=== PATIENT | female | born 1970 | race Caucasian/White ===

== ENCOUNTER 2017-05-26 11:35 | Emergency (ER) | payer MEDICAID ==
[~2017-05-26] VITALS: Ht 175.3 cm; Wt 70.0 kg
[~2017-05-26 11:35] MED LIST: ASPI81 PO; BUPR150T3 PO; DEPA250T2 PO; ENAL10TA7 PO; HYDRO25 PO; MACR100C PO; PAXI30TA7 PO; PLAV75TA PO; VIST25CA PO
[2017-05-26 11:47] VITALS: BP 117/58; PULSE 104; RESP 18; TEMP 98.1; O2SAT 96
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
[2017-05-26] MEDS ORDERED: PAXI30TA7 PO (11:59)
[2017-05-26] MEDS ORDERED: PLAV75TA29 PO (11:59)
[2017-05-26] MEDS ORDERED: VIST50CA PO (11:59)
[2017-05-26] MEDS ORDERED: DEPA250T2 PO (11:59)
[2017-05-26] MEDS ORDERED: ENAL20TA PO (11:59)
[2017-05-26] MEDS ORDERED: SODIUM CHLORIDE 0.9% FLUSH 10 ML FLUSH IVF PRN (12:00)
[2017-05-26 12:27] LABS: AUTOMATED NEUTROPHIL # 3.8 TH/MM3 (1.8-7.7); BASOPHIL % 0.3 % (0.0-2.0); EOSINOPHIL % 0.5 % (0.0-4.0); HEMATOCRIT 34.3 % (35.0-46.0); HEMOGLOBIN 11.5 GM/DL (11.6-15.3); LYMPH % 23.3 % (9.0-44.0); LYMPHOCYTE # 1.5 TH/MM3 (1.0-4.8); MEAN CELL VOLUME 93.2 FL (80.0-100.0); MEAN CORPUSCULAR HEMOGLOBIN 31.4 PG (27.0-34.0); MEAN CORPUSCULAR HGB CONC 33.7 % (32.0-36.0); MEAN PLATELET VOLUME 9.5 FL (7.0-11.0); MONO % 15.8 % (0.0-8.0); NEUT % 60.1 % (16.0-70.0); PLATELET COUNT 163 TH/MM3 (150-450); RED BLOOD COUNT 3.68 MIL/MM3 (4.00-5.30); RED CELL DISTRIBUTION WIDTH 13.9 % (11.6-17.2); WHITE BLOOD COUNT 6.4 TH/MM3 (4.0-11.0)
[2017-05-26 12:49] LABS: BICARBONATE 28.4 MEQ/L (21.0-32.0); CALCIUM 9.5 MG/DL (8.5-10.1); CREATININE 1.72 MG/DL (0.50-1.00)
== END 2017-05-26 15:00 | disposition home or self-care (01) ==
LOC: NEPC 11:35
DX: G40.909 Epilepsy, unspecified, not intractable, without status epilepticus (principal); F31.30 Bipolar disorder, current episode depressed, mild or moderate severity, unspecified; I10 Essential (primary) hypertension; F17.210 Nicotine dependence, cigarettes, uncomplicated
CPT/HCPCS: 80048; 80164; 85025; 99283

== ENCOUNTER 2017-08-08 15:13 | Emergency (ER) | payer OTHER, MEDICAID ==
[~2017-08-08 15:13] MED LIST changes: -ASPI81 PO; -BUPR150T3 PO; -ENAL10TA7 PO; +ENAL20TA PO; -HYDRO25 PO; -MACR100C PO; -PLAV75TA PO; +PLAV75TA29 PO; -VIST25CA PO; +VIST50CA PO
[2017-08-08] MEDS ORDERED: IOHEXOL 350 MG/ML 10 ML VIAL (for RAD DIAG) IVCONTRAST ONE (15:14)
[2017-08-08 15:20] VITALS: BP 140/102; PULSE 86; RESP 16; TEMP 99.1; O2SAT 100
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
[2017-08-08 17:27] LABS: AUTOMATED NEUTROPHIL # 6.1 TH/MM3 (1.8-7.7); BASOPHIL # 0.1 TH/MM3 (0-0.2); BASOPHIL % 0.7 % (0.0-2.0); EOSINOPHIL % 0.3 % (0.0-4.0); HEMATOCRIT 34.8 % (35.0-46.0); HEMOGLOBIN 11.6 GM/DL (11.6-15.3); LYMPHOCYTE # 1.5 TH/MM3 (1.0-4.8); MEAN CELL VOLUME 95.2 FL (80.0-100.0); MEAN CORPUSCULAR HEMOGLOBIN 31.8 PG (27.0-34.0); MEAN CORPUSCULAR HGB CONC 33.4 % (32.0-36.0); MEAN PLATELET VOLUME 8.3 FL (7.0-11.0); MONO % 6.4 % (0.0-8.0); MONOCYTE # 0.5 TH/MM3 (0-0.9); NEUT % 74.6 % (16.0-70.0); PLATELET COUNT 224 TH/MM3 (150-450); RED BLOOD COUNT 3.65 MIL/MM3 (4.00-5.30); RED CELL DISTRIBUTION WIDTH 14.4 % (11.6-17.2); WHITE BLOOD COUNT 8.1 TH/MM3 (4.0-11.0)
[2017-08-08 17:40] LABS: PROTHROMBIN TIME - PATIENT 10.5 SEC (9.8-11.6)
[2017-08-08 17:58] LABS: BLOOD UREA NITROGEN 10 MG/DL (7-18); GLOMERULAR FILTRATION RATE 54 ML/MIN (>89); GLUCOSE,RANDOM 96 MG/DL (74-106)
[2017-08-08 17:59] LABS: ALBUMIN 3.3 GM/DL (3.4-5.0); ALKALINE PHOSPHATASE 59 U/L (45-117); ALT (GPT) 19 U/L (10-53); AST (GOT) 25 U/L (15-37); CALCIUM 8.9 MG/DL (8.5-10.1); SODIUM (NA) 141 MEQ/L (136-145); TOTAL BILIRUBIN ADULT 0.5 MG/DL (0.2-1.0); TOTAL PROTEIN 6.4 GM/DL (6.4-8.2)
[2017-08-08 18:00] LABS: BICARBONATE 28.5 MEQ/L (21.0-32.0); CHLORIDE 106 MEQ/L (98-107)
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
[2017-08-08] MEDS ORDERED: ROBA750T PO (19:45)
[2017-08-08] MEDS ORDERED: ACETAMINOPHEN 325 MG TAB PO ONE (20:00)
== END 2017-08-08 20:23 | disposition home or self-care (01) ==
LOC: NEPC 15:13
DX: S09.90XA Unspecified injury of head, initial encounter (principal); S16.1XXA Strain of muscle, fascia and tendon at neck level, initial encounter; F17.210 Nicotine dependence, cigarettes, uncomplicated; I10 Essential (primary) hypertension; M25.571 Pain in right ankle and joints of right foot; R06.02 Shortness of breath; V49.50XA Passenger injured in collision with unspecified motor vehicles in traffic accident, initial encounter
CPT/HCPCS: 70450; 71045; 72125; 72132; 73030; 73564; 73610; 74177; 80053; 84703; 85025; 85610; 85730; 99285; Q9967